=== PATIENT | female | born 1985 | race Asian ===

== ENCOUNTER 2017-09-03 06:45 | Inpatient (IN) | payer SELFPAY ==
[~2017-09-03] VITALS: Ht 165 cm; Wt 72.1 kg
[2017-09-03 07:51] VITALS: BP 106/69
[2017-09-03] MEDS ORDERED: BUPIVACAINE 0.125%/NS PREMIX 250 ML ONE (08:10)
[2017-09-03] MEDS ORDERED: LACTATED RINGERS 1,000 ML IV SCH (08:42)
[2017-09-03] MEDS ORDERED: OXYTOCIN 10 UNITS/ML VIAL IM ONE (08:45)
[2017-09-03] MEDS ORDERED: OXYTOCIN 20 UNITS in LACTATED RINGERS 1,000 ML IV SCH ×2 (08:45→14:24)
[2017-09-03] MEDS ORDERED: NALBUPHINE 10 MG/ML AMP IVP PRN (08:45)
[2017-09-03] MEDS ORDERED: PROMETHAZINE 25 MG/ML VIAL IVP PRN (08:45)
[2017-09-03 10:01] LABS: HEMATOCRIT 38.9 % (36-48); HEMOGLOBIN 13.3 g/dL (12.0-16.0); MEAN CORPUSCULAR HEMOGLOBIN 30 pg (27-31); MEAN CORPUSCULAR HGB CONC 34 g/dL (33-37); MEAN CORPUSCULAR VOLUME 88 fL (80-94); PLATELET COUNT (AUTO) 222 K/uL (140-450); RED BLOOD CELL COUNT(AUTO) 4.41 MIL/uL (4.20-5.40)
--- NOTE | 2017-09-03 10:19 | NUR ---
PATIENT HAS BEEN SCREENED AND CATEGORIZED LOW NUTRITION RISK. PATIENT WILL BE SEEN WITHIN 7 DAYS OF ADMISSION. 09/10/2017 AMIE CHACON MBA, RD
[2017-09-03 10:38] LABS: WHITE BLOOD COUNT (AUTO) 20.9 K/uL (4.8-10.8)
[2017-09-03 10:54] LABS: LYMPHOCYTES % (MANUAL) 6 % (20-46); MONOCYTES % (MANUAL) 2 % (5-12)
[2017-09-03 10:55] LABS: ANION GAP 12.3 (8-16); CARBON DIOXIDE 23.5 mmol/L (21-32); CREATININE 0.7 mg/dL (0.6-1.3); POTASSIUM 3.8 mmol/L (3.5-5.1)
[2017-09-03 11:01] LABS: ALBUMIN 2.5 g/dL (3.4-5.0); TOTAL BILIRUBIN 0.3 mg/dL (0.0-1.0)
[2017-09-03 11:02] LABS: APPEARANCE,URINE HAZY (CLEAR); BILIRUBIN,URINE NEGATIVE (NEGATIVE); BLOOD, URINE 3+ (NEGATIVE); COLOR,URINE YELLOW (YELLOW); LEUKOCYTE ESTERASE ,URINE TRACE (NEGATIVE); NITRITE, URINE NEGATIVE (NEGATIVE); UGLUCOSE NEGATIVE (NEGATIVE)
[2017-09-03 11:26] LABS: RBC,URINE NONE SEEN /HPF (0-5)
[2017-09-03] MEDS ORDERED: OXYTOCIN 10 UNITS/ML VIAL ONE (13:12)
[2017-09-03] MEDS ORDERED: LIDOCAINE 1% 50 ML ONE (13:13)
[2017-09-03] MEDS ORDERED: MEASLES, MUMPS, AND RUBELLA 1 VIAL SQVAC PRN (14:25)
[2017-09-03] MEDS ORDERED: BENZOCAINE/MENTHOL 20%-0.5% 60 GM CAN TP PRN (14:25)
[2017-09-03] MEDS ORDERED: BISACODYL 5 MG TABEC PO PRN (14:25)
[2017-09-03] MEDS ORDERED: DOCUSATE SODIUM 100 MG GELCAP PO PRN (14:25)
[2017-09-03] MEDS ORDERED: oxyCODONE/APAP 5/325 MG 1 TAB TAB PO PRN (14:25)
[2017-09-03] MEDS ORDERED: ACETAMINOPHEN 325 MG TAB PO PRN (14:25)
[2017-09-04 06:57] LABS: HEMATOCRIT 34.8 % (36-48); HEMOGLOBIN 12.2 g/dL (12.0-16.0); MEAN CORPUSCULAR HEMOGLOBIN 32 pg (27-31); MEAN CORPUSCULAR HGB CONC 35 g/dL (33-37); MEAN CORPUSCULAR VOLUME 90 fL (80-94); PLATELET COUNT (AUTO) 200 K/uL (140-450); RED BLOOD CELL COUNT(AUTO) 3.87 MIL/uL (4.20-5.40); RED CELL DISTRIBUTION WIDTH 13.7 % (11.6-13.7); WHITE BLOOD COUNT (AUTO) 20.7 K/uL (4.8-10.8)
[2017-09-04 07:45] LABS: BASOPHILS % (MANUAL) 0 % (0-2); EOSINOPHILS % (MANUAL) 0 % (0-4); LYMPHOCYTES % (MANUAL) 16 % (20-46); MONOCYTES % (MANUAL) 4 % (5-12)
[2017-09-04 10:06] LABS: HEPATITIS B SURFACE ANTIGEN Negative (Negative)
== END 2017-09-05 19:45 | disposition home or self-care (01) | DRG 775 ==
LOC: MFCC 06:45
PROVIDERS: ADMIT Obstetrics & Gynecology; ATTEND Obstetrics & Gynecology
PROC: 10D07Z6 Extraction of Products of Conception, Vacuum, Via Natural or Artificial Opening (ICD-10-PCS; principal; 2017-09-03)
PROC: 0KQM0ZZ Repair Perineum Muscle, Open Approach (ICD-10-PCS; 2017-09-03)
PROC: 00HU33Z Insertion of Infusion Device into Spinal Canal, Percutaneous Approach (ICD-10-PCS; 2017-09-03)
PROC: 3E0R3BZ Introduction of Anesthetic Agent into Spinal Canal, Percutaneous Approach (ICD-10-PCS; 2017-09-03)
PROC: 3E0234Z Introduction of Serum, Toxoid and Vaccine into Muscle, Percutaneous Approach (ICD-10-PCS; 2017-09-05)
DX: O77.0 Labor and delivery complicated by meconium in amniotic fluid (principal); O70.1 Second degree perineal laceration during delivery; Z37.0 Single live birth; Z3A.39 39 weeks gestation of pregnancy; Z23 Encounter for immunization
CPT/HCPCS: 36415; 51702; 59409; 80053; 81001; 85025; 86592; 86762; 87086; 87340; 90715; J2001; J2590; J3490; J7120